=== PATIENT | male | born 1995 | race Caucasian/White ===

== ENCOUNTER 2019-12-08 20:27 | Emergency (ER) | payer SELFPAY ==
[~2019-12-08] VITALS: Ht 175.3 cm; Wt 70.3 kg
[2019-12-08] MEDS ORDERED: HYDHCL25 PO (21:40)
[2019-12-08] MEDS ORDERED: Prednisone50 MG PO (21:40)
== END 2019-12-08 22:18 | disposition home or self-care (01) ==
LOC: ER 20:27
DX: L30.9 Dermatitis, unspecified (principal)
CPT/HCPCS: J3301